=== PATIENT | male | born 1990 | race Caucasian/White ===

== ENCOUNTER 2018-09-04 10:47 | Emergency (ER) | payer OTHER ==
[~2018-09-04] VITALS: Ht 190.5 cm; Wt 91.8 kg
[2018-09-04 10:59] VITALS: BP 126/71
--- NOTE | 2018-09-04 11:05 | NUR ---
PT AMBULATED TO ER BED 4
--- NOTE | 2018-09-04 11:15 | NUR ---
C/O INTERMITTENT L FOREARM PAIN 09/20, DULL/ACHEY X1 DAY. PT REPORTS PLAYING BASEBALL AND GOT HIT WITH A PITCHED BASEBALL JUST ABOVE WRIST. L FOREARM HAS MILD ERYTHEMA & MILD BRUISING/SWELLING PRESENT. NO DEFORMITY. CMS INTACT, DENIES NUMBNESS/TINGLING, ROM INTACT, SKIN IS WARM,DRY AND NFE.
--- NOTE | 2018-09-04 11:57 | NUR ---
DR. DAVIES BEDSIDE EVALUATING PT
[2018-09-04] MEDS ORDERED: KETOROLAC 30 MG/ML VIAL IM ONE (12:10)
[2018-09-04 13:18] VITALS: BP 119/77
== END 2018-09-04 13:18 | disposition home or self-care (01) ==
LOC: MED 10:47
DX: S50.12XA Contusion of left forearm, initial encounter (principal); Z86.711 Personal history of pulmonary embolism; W21.03XA Struck by baseball, initial encounter; Y93.89 Activity, other specified; Y92.89 Other specified places as the place of occurrence of the external cause; Y99.8 Other external cause status
CPT/HCPCS: 29125; 73090; 96372; 99283; J1885; Q0092

== ENCOUNTER 2019-01-15 10:23 | Emergency (ER) | payer BC, OTHER ==
[~2019-01-15] VITALS: Ht 188 cm; Wt 92.8 kg
[2019-01-15 10:37] VITALS: BP 123/68
--- NOTE | 2019-01-15 10:40 | NUR ---
28/M CAME IN TO ER COMPLAINING OF LEFT THUMB PAIN. STATED HE WAS PLAYING BASEBALL. HYPEREXTENDED THUMB WHEN CATCHING BALL. CAP REFILL IS <3SECS, RADIAL PULSE 2+, NO BRUISING NO DEFORMITY NOTED, FULL ROM WITH PAIN 8/10, RADIATES TO FOREARM. AREA AROUND THUMB IS SWOLLEN. PMHX: "CLOTS ON LUNGS" RX: DENIES
--- NOTE | 2019-01-15 10:41 | NUR ---
Patient ambulated to bed 11. RN evaluating patient at bedside.
--- NOTE | 2019-01-15 10:55 | NUR ---
it telecom technician at bedside.
--- NOTE | 2019-01-15 11:34 | NUR ---
APPLIED THUMB SPICA TO LEFT THUMB AND SLING TO LEFT ARM WITHOUT ANY ISSUES
[2019-01-15 11:41] VITALS: BP 123/68
== END 2019-01-15 11:39 | disposition home or self-care (01) ==
LOC: MED 10:23
DX: S63.602A Unspecified sprain of left thumb, initial encounter (principal); F17.210 Nicotine dependence, cigarettes, uncomplicated; Z71.6 Tobacco abuse counseling; W23.0XXA Caught, crushed, jammed, or pinched between moving objects, initial encounter; Y93.64 Activity, baseball; Y92.320 Baseball field as the place of occurrence of the external cause; Y99.8 Other external cause status
CPT/HCPCS: 29125; 73130; 99283; Q0092

== ENCOUNTER 2020-02-01 01:45 | Emergency (ER) | payer BC, OTHER ==
[~2020-02-01] VITALS: Ht 190.5 cm; Wt 95.3 kg
[2020-02-01 01:50] VITALS: BP 128/81
--- NOTE | 2020-02-01 01:57 | NUR ---
PT TAKEN TO BED 3
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
[2020-02-01] MEDS ORDERED: ASPIRIN 325 MG TAB PO ONE ×2 (02:20)
[2020-02-01 02:32] LABS: EOSINOPHILS # (AUTO) 0.2 K/uL (0-0.4); HEMOGLOBIN 13.6 g/dL (12.0-18.0)
--- NOTE | 2020-02-01 02:36 | NUR ---
X-Ray at bedside.
[2020-02-01 02:45] LABS: ANION GAP 15.1 (8-16); CARBON DIOXIDE 26.5 mmol/L (21-32); POTASSIUM 3.6 mmol/L (3.5-5.1); TOTAL BILIRUBIN 0.3 mg/dL (0.0-1.0)
[2020-02-01 03:00] LABS: BASOPHILS % (AUTO) 0.4 % (0.0-2.0); EOSINOPHILS % (AUTO) 2.4 % (0.0-4.0); HEMATOCRIT 39.9 % (36-52); LYMPHOCYTES # (AUTO) 3.7 K/uL (2.0-11.5); LYMPHOCYTES % (AUTO) 41.4 % (20.5-51.1); MEAN CORPUSCULAR HEMOGLOBIN 30 pg (27-31); MEAN CORPUSCULAR HGB CONC 34 g/dL (33-37); MEAN CORPUSCULAR VOLUME 87.5 fL (80-94); MONOCYTES % (AUTO) 11.3 % (1.7-9.3); NEUTROPHILS # (AUTO) 3.9 K/uL (1.8-7.7); NEUTROPHILS % (AUTO) 44.5 % (42.2-75.2); PLATELET COUNT (AUTO) 270 K/uL (140-450); RED BLOOD CELL COUNT(AUTO) 4.56 MIL/uL (4.20-6.10); WHITE BLOOD COUNT (AUTO) 8.8 K/uL (4.8-10.8)
--- NOTE | 2020-02-01 03:18 | NUR ---
PT RESTING QUIETLY IN BED. VSS, R/R EQUAL, AND UNLABORED. HOB RAISED. PT POSITIONED FOR COMFORT. SIDE RAIL X1, BED IN LOW POSITION, WILL CONTINUE TO MONITOR.
--- NOTE | 2020-02-01 06:11 | NUR ---
Patient discharged with v/s stable. Written and verbal after care instructions given and explained. Patient verbalized understanding. Ambulatory with steady gait. All questions addressed prior to discharge. Advised to follow up with PMD.
[2020-02-01 06:24] VITALS: BP 128/81
== END 2020-02-01 06:11 | disposition home or self-care (01) ==
LOC: MED 01:45
DX: R06.02 Shortness of breath (principal); R07.9 Chest pain, unspecified; F15.10 Other stimulant abuse, uncomplicated
CPT/HCPCS: 36415; 71045; 71275; 80053; 84484; 85025; 85379; 93005; 99285; Q9967

== ENCOUNTER 2020-05-18 06:49 | Emergency (ER) | payer OTHER ==
[~2020-05-18] VITALS: Ht 188 cm; Wt 88.0 kg
[2020-05-18 06:53] VITALS: BP 133/79
--- NOTE | 2020-05-18 06:56 | NUR ---
PT TAKEN TO BED 7
--- NOTE | 2020-05-18 07:03 | NUR ---
Dr. Camargo examining patient.
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
--- NOTE | 2020-05-18 07:13 | NUR ---
X-Ray at bedside.
--- NOTE | 2020-05-18 07:13 | NUR ---
LAB AT BEDSIDE
--- NOTE | 2020-05-18 07:14 | NUR ---
REPORTED TO KELBY HEADLEY FOR CONTINUITY OF CARE
[2020-05-18 07:25] LABS: BASOPHILS # (AUTO) 0.1 K/uL (0.00-0.22); BASOPHILS % (AUTO) 0.8 % (0.0-2.0); EOSINOPHILS # (AUTO) 0.1 K/uL (0-0.4); EOSINOPHILS % (AUTO) 0.8 % (0.0-4.0); HEMATOCRIT 40.2 % (36-52); HEMOGLOBIN 13.5 g/dL (12.0-18.0); LYMPHOCYTES # (AUTO) 2.4 K/uL (2.0-11.5); LYMPHOCYTES % (AUTO) 35.8 % (20.5-51.1); MEAN CORPUSCULAR HEMOGLOBIN 30 pg (27-31); MEAN CORPUSCULAR HGB CONC 34 g/dL (33-37); MEAN CORPUSCULAR VOLUME 89.1 fL (80-94); MONOCYTES # (AUTO) 0.6 K/uL (0.8-1.0); MONOCYTES % (AUTO) 9.3 % (1.7-9.3); NEUTROPHILS # (AUTO) 3.6 K/uL (1.8-7.7); NEUTROPHILS % (AUTO) 53.3 % (42.2-75.2); PLATELET COUNT (AUTO) 265 K/uL (140-450); RED BLOOD CELL COUNT(AUTO) 4.51 MIL/uL (4.20-6.10); RED CELL DISTRIBUTION WIDTH 13.7 % (11.6-13.7); WHITE BLOOD COUNT (AUTO) 6.8 K/uL (4.8-10.8)
[2020-05-18] MEDS: ALUMINUM HYD/MAG/SIMETHICONE 30 ML UDC PO ONE (07:26)
[2020-05-18] MEDS: FAMOTIDINE 20 MG TAB PO ONE (07:26)
[2020-05-18 07:39] LABS: ALBUMIN 3.8 g/dL (3.4-5.0); ANION GAP 10.2 (8-16); CARBON DIOXIDE 29.3 mmol/L (21-32); POTASSIUM 3.5 mmol/L (3.5-5.1); TOTAL BILIRUBIN 0.7 mg/dL (0.0-1.0)
[2020-05-18] MEDS ORDERED: FAMO-90 PO (07:48)
--- NOTE | 2020-05-18 07:55 | NUR ---
Patient discharged with v/s stable. Written and verbal after care instructions about GERD given and explained. Patient alert, oriented and verbalized understanding of instructions. Ambulatory with steady gait. All questions addressed prior to discharge. ID band removed. Patient advised to follow up with PMD. Rx of pepcid given. Patient educated on indication of medication including possible reaction and side effects. Opportunity to ask questions provided and answered.
[2020-05-18 07:57] VITALS: BP 133/79
== END 2020-05-18 07:55 | disposition home or self-care (01) ==
LOC: MED 06:49
DX: R07.89 Other chest pain (principal); Z79.899 Other long term (current) drug therapy
CPT/HCPCS: 36415; 71045; 80053; 83880; 84484; 85025; 85379; 99285

== ENCOUNTER 2020-05-21 05:50 | Emergency (ER) | payer OTHER ==
[~2020-05-21] VITALS: Ht 193 cm; Wt 87.1 kg
[~2020-05-21 05:50] MED LIST: FAMO-90 PO
[2020-05-21 05:58] VITALS: BP 118/71
[2020-05-21] MEDS ORDERED: LORazepam 1 MG TAB PO ONE (06:15)
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
[2020-05-21 06:39] VITALS: BP 118/71
== END 2020-05-21 06:41 | disposition home or self-care (01) ==
LOC: MED 05:50
DX: F41.9 Anxiety disorder, unspecified (principal)
CPT/HCPCS: 93005; 99283

== ENCOUNTER 2020-08-16 12:44 | Emergency (ER) | payer OTHER ==
[~2020-08-16] VITALS: Ht 190.5 cm; Wt 86.2 kg
--- NOTE | 2020-08-16 12:48 | NUR ---
Patient ambulated to bed 7. RN evaluating the patient at bedside.
[2020-08-16 12:50] VITALS: BP 129/61
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
--- NOTE | 2020-08-16 13:06 | NUR ---
DR. CHING AT BEDSIDE EVALUATING PT.
[2020-08-16 13:18] VITALS: BP 129/61
[2020-08-16] MEDS ORDERED: ONDA8TAB87 PO ×2 (15:35→15:38)
== END 2020-08-16 13:15 | disposition home or self-care (01) ==
LOC: MED 12:44
DX: R00.2 Palpitations (principal); Z79.899 Other long term (current) drug therapy
CPT/HCPCS: 93005; 99283

== ENCOUNTER 2020-08-20 00:49 | Emergency (ER) | payer OTHER ==
[~2020-08-20] VITALS: Ht 190.5 cm; Wt 92.5 kg
[~2020-08-20 00:49] MED LIST changes: +ONDA8TAB87 PO
[2020-08-20 00:51] VITALS: BP 134/78
--- NOTE | 2020-08-20 00:52 | NUR ---
29 Y/O MALE PRESENTED TO ED C/O SOB , PT STATES HE WOKE UP AND FELT LIKE HE COULDN'T CATCH HIS BREATH. PT STATES HE ALSO HAS SOME CHEST PAIN X 2 DAYS , DESCRIBES PAIN BURNING SENSATION W/ NO RADIATION. RR EVEN AND UNLABORED. LUNG SOUND BL CLEAR THROUGHOUT. CAP REFIL < 3 SEC. PT RESTING IN BED, LOCKED AND IN LOWEST POSITION, HOB ELEVATED, SIDE RAIL X1 . VSS. PT CONNECTED TO PULSE OX , OXYGEN LEVEL 97% RA. PMH: ANXIETY , BLOOD CLOTS NKA
--- NOTE | 2020-08-20 00:59 | NUR ---
Patient ambulated to ER [facility] w/ steady gait. VSS. No acute distress noted.
--- NOTE | 2020-08-20 01:21 | NUR ---
PT TAKEN TO BED 3
--- NOTE | 2020-08-20 01:24 | NUR ---
Dr. Castellanos examining patient.
--- NOTE | 2020-08-20 01:42 | NUR ---
EKG DONE AT BEDSIDE. STRIP READS 69 BPM/ SINUS RHYTHM. MD MADE AWARE, WILL CONTINUE TO MONITOR.
[2020-08-20] MEDS ORDERED: ASPIRIN 325 MG TAB PO ONE (01:45)
[2020-08-20 02:01] LABS: BASOPHILS # (AUTO) 0.1 K/uL (0.00-0.22); BASOPHILS % (AUTO) 0.7 % (0.0-2.0); EOSINOPHILS # (AUTO) 0.2 K/uL (0-0.4); EOSINOPHILS % (AUTO) 2.6 % (0.0-4.0); HEMATOCRIT 39.9 % (36-52); HEMOGLOBIN 13.7 g/dL (12.0-18.0); LYMPHOCYTES # (AUTO) 2.3 K/uL (2.0-11.5); LYMPHOCYTES % (AUTO) 31.6 % (20.5-51.1); MEAN CORPUSCULAR HEMOGLOBIN 31 pg (27-31); MEAN CORPUSCULAR HGB CONC 34 g/dL (33-37); MEAN CORPUSCULAR VOLUME 90.5 fL (80-94); MONOCYTES # (AUTO) 0.6 K/uL (0.8-1.0); MONOCYTES % (AUTO) 8.5 % (1.7-9.3); NEUTROPHILS % (AUTO) 56.6 % (42.2-75.2); PLATELET COUNT (AUTO) 261 K/uL (140-450); RED BLOOD CELL COUNT(AUTO) 4.41 MIL/uL (4.20-6.10); RED CELL DISTRIBUTION WIDTH 13.5 % (11.6-13.7); WHITE BLOOD COUNT (AUTO) 7.1 K/uL (4.8-10.8)
--- NOTE | 2020-08-20 02:09 | NUR ---
PATIENT AMBULATED TO THE BATHROOM FOR URINE COLLECTION
--- NOTE | 2020-08-20 02:11 | NUR ---
LES COLLECTED AND GIVEN TO [facility]
[2020-08-20 02:20] LABS: ANION GAP 17.4 (8-16); POTASSIUM 4.4 mmol/L (3.5-5.1)
[2020-08-20 02:25] LABS: ALBUMIN 3.8 g/dL (3.4-5.0); TOTAL BILIRUBIN 0.4 mg/dL (0.0-1.0)
--- NOTE | 2020-08-20 02:47 | NUR ---
PT TO CT VIA W/C
--- NOTE | 2020-08-20 03:44 | NUR ---
EKG PERFORMED AT BEDSIDE. EKG READS SINUS RHYTHM @ 69
[2020-08-20 04:05] VITALS: BP 109/60
--- NOTE | 2020-08-20 04:05 | NUR ---
Patient discharged with v/s stable. Written and verbal after care instructions given and explained. Patient verbalized understanding. Ambulatory with steady gait. ID band removed. All questions addressed prior to discharge. Advised to follow up with PMD.
== END 2020-08-20 04:05 | disposition home or self-care (01) ==
LOC: MED 00:49
DX: R07.89 Other chest pain (principal); Z20.822 Contact with and (suspected) exposure to COVID-19; F41.9 Anxiety disorder, unspecified; Z79.899 Other long term (current) drug therapy
CPT/HCPCS: 36415; 71045; 71250; 80053; 84484; 85025; 86060; 86140; 93005; 99285

== ENCOUNTER 2021-05-22 13:42 | Emergency (ER) | payer OTHER ==
[~2021-05-22] VITALS: Ht 190.5 cm; Wt 90.3 kg
[2021-05-22 13:43] VITALS: BP 136/80
--- NOTE | 2021-05-22 13:46 | NUR ---
Patient ambultaed to bed 11 with steady/even gait.
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
[2021-05-22] MEDS ORDERED: KETOROLAC 30 MG/ML VIAL IM ONE (14:15)
--- NOTE | 2021-05-22 14:46 | NUR ---
RAD AT BEDSIDE
[2021-05-22] MEDS ORDERED: ACET-8386 PO (15:05)
--- NOTE | 2021-05-22 15:18 | NUR ---
Patient discharged with v/s stable. Written and verbal after care instructions given and explained. Patient alert, oriented and verbalized understanding of instructions. Ambulatory with steady gait. All questions addressed prior to discharge. ID band removed. Patient advised to follow up with PMD. Rx of NORCO 5/325 given. Patient educated on indication of medication including possible reaction and side effects. Opportunity to ask questions provided and answered.
== END 2021-05-22 15:17 | disposition home or self-care (01) ==
LOC: MED 13:42
DX: R07.81 Pleurodynia (principal); M79.10 Myalgia, unspecified site; V98.8XXA Other specified transport accidents, initial encounter; Y93.89 Activity, other specified; Y92.89 Other specified places as the place of occurrence of the external cause; Y99.8 Other external cause status
CPT/HCPCS: 71045; 96372; 99283; J1885; Q0092

== ENCOUNTER 2021-05-24 12:13 | Emergency (ER) | payer OTHER ==
[~2021-05-24] VITALS: Ht 190.5 cm; Wt 92.5 kg
[~2021-05-24 12:13] MED LIST changes: +ACET-8386 PO
[2021-05-24 12:18] VITALS: BP 136/79
--- NOTE | 2021-05-24 12:23 | NUR ---
Patient ambulated to bed 02 with steady/even gait.
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
--- NOTE | 2021-05-24 12:34 | NUR ---
Dr. Harding is evaluating pt at bedside
[2021-05-24 13:07] LABS: EOSINOPHILS # (AUTO) 0.1 K/uL (0-0.4); EOSINOPHILS % (AUTO) 1.7 % (0.0-4.0); HEMATOCRIT 40.2 % (36-52); HEMOGLOBIN 13.5 g/dL (12.0-18.0); LYMPHOCYTES # (AUTO) 1.2 K/uL (2.0-11.5); LYMPHOCYTES % (AUTO) 29.3 % (20.5-51.1); MEAN CORPUSCULAR HEMOGLOBIN 31 pg (27-31); MEAN CORPUSCULAR HGB CONC 34 g/dL (33-37); MEAN CORPUSCULAR VOLUME 90.9 fL (80-94); MONOCYTES # (AUTO) 0.3 K/uL (0.8-1.0); MONOCYTES % (AUTO) 7.6 % (1.7-9.3); NEUTROPHILS # (AUTO) 2.6 K/uL (1.8-7.7); NEUTROPHILS % (AUTO) 60.4 % (42.2-75.2); PLATELET COUNT (AUTO) 238 K/uL (140-450); RED BLOOD CELL COUNT(AUTO) 4.42 MIL/uL (4.20-6.10); RED CELL DISTRIBUTION WIDTH 13.5 % (11.6-13.7); WHITE BLOOD COUNT (AUTO) 4.3 K/uL (4.8-10.8)
[2021-05-24 13:27] LABS: ALBUMIN 3.6 g/dL (3.4-5.0); ANION GAP 8.6 (8-16); CARBON DIOXIDE 29.6 mmol/L (21-32); POTASSIUM 4.2 mmol/L (3.5-5.1); TOTAL BILIRUBIN 0.4 mg/dL (0.0-1.0)
[2021-05-24 14:10] VITALS: BP 109/69
--- NOTE | 2021-05-24 14:10 | NUR ---
Dr. Harding is reevaluating pt at bedside
--- NOTE | 2021-05-24 14:15 | NUR ---
Patient discharged with v/s stable. Written and verbal after care instructions given and explained for Nonspecific Chest Pain. Patient verbalized understanding. Ambulatory with steady gait. All questions addressed prior to discharge. Advised to follow up with PMD. Work note provided.
== END 2021-05-24 14:15 | disposition home or self-care (01) ==
LOC: MED 12:13
DX: R07.9 Chest pain, unspecified (principal); R42 Dizziness and giddiness; F41.9 Anxiety disorder, unspecified; F32.9 Major depressive disorder, single episode, unspecified; Z79.899 Other long term (current) drug therapy
CPT/HCPCS: 36415; 71045; 80053; 83690; 84484; 85025; 85379; 93005; 99285

== ENCOUNTER 2021-06-05 20:40 | Emergency (ER) | payer OTHER ==
[~2021-06-05] VITALS: Ht 190.5 cm; Wt 90.7 kg
[2021-06-05 20:50] VITALS: BP 140/80
--- NOTE | 2021-06-05 20:50 | NUR ---
TO BED AMBULATORY
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
--- NOTE | 2021-06-05 21:07 | NUR ---
Dr. Zhu examining patient.
[2021-06-05] MEDS ORDERED: MORPHINE SULFATE 4 MG/ML SYR IM ONE (21:10)
[2021-06-05] MEDS ORDERED: BACTO TP (22:28)
[2021-06-05] MEDS ORDERED: ACET-8386 PO (22:28)
[2021-06-05] MEDS ORDERED: IBUP-2213 PO (22:28)
[2021-06-05 23:00] VITALS: BP 140/80
== END 2021-06-05 23:00 | disposition home or self-care (01) ==
LOC: MED 20:40
DX: S02.2XXA Fracture of nasal bones, initial encounter for closed fracture (principal); S05.42XA Penetrating wound of orbit with or without foreign body, left eye, initial encounter; S01.511A Laceration without foreign body of lip, initial encounter; Z79.899 Other long term (current) drug therapy; Y04.2XXA Assault by strike against or bumped into by another person, initial encounter; Y93.89 Activity, other specified; Y92.89 Other specified places as the place of occurrence of the external cause; Y99.8 Other external cause status
CPT/HCPCS: 12013; 70450; 70486; 72125; 90471; 90715; 96374; 99285; J2270

== ENCOUNTER 2021-08-13 05:15 | Emergency (ER) | payer OTHER ==
[~2021-08-13] VITALS: Ht 190.5 cm; Wt 92.5 kg
[~2021-08-13 05:15] MED LIST changes: +BACTO TP; +IBUP-2213 PO
[2021-08-13 05:33] VITALS: BP 126/66
--- NOTE | 2021-08-13 05:42 | NUR ---
30 Y/O MALE BIBS FROM HOME, C/O PRODUCTIVE COUGH X6 DAYS. DRY STUFFY NOSE. -N/V/D OR FEVER. +SORE THROAT. A/OX4, GCS-15; UNLABORED BREATHING AND SPEAKING IN FULL SENTENCES; AMBULATORY W/O ASSISTANCE. HX: BLOOD CLOT, INSOMNIA, ANX NKA LORAZEPAM, HYDOXYZINE, BUSPORINE
--- NOTE | 2021-08-13 06:06 | NUR ---
PT TAKEN TO XRAY FROM [facility]
--- NOTE | 2021-08-13 06:09 | NUR ---
PT RETURN FROM XRAY
[2021-08-13] MEDS ORDERED: PRED20TA5 PO (07:23)
--- NOTE | 2021-08-13 07:36 | NUR ---
FLU & COVID LES SWAB PAMELA.
--- NOTE | 2021-08-13 07:36 | NUR ---
Raquel jones in [facility] - 08/13/21 at 0736 by [email or web address] FLUKayla& DYLON SANTIAGO.
--- NOTE | 2021-08-13 07:45 | NUR ---
SWAB ORDERS CANCELLED PER DR CHING
--- NOTE | 2021-08-13 07:51 | NUR ---
Patient discharged with v/s stable. Written and verbal after care instructions ABOUT COUGH given and explained. Patient alert, oriented and verbalized understanding of instructions. Ambulatory with steady gait. All questions addressed prior to discharge. ID band removed. Patient advised to follow up with PMD. Rx of PREDNISONE given. Patient educated on indication of medication including possible reaction and side effects. Opportunity to ask questions provided and answered.
== END 2021-08-13 07:51 | disposition home or self-care (01) ==
LOC: MED 05:15
DX: R05.9 Cough, unspecified (principal); Z79.899 Other long term (current) drug therapy
CPT/HCPCS: 71045; 99283

== ENCOUNTER 2021-09-04 07:14 | Emergency (ER) | payer OTHER ==
[~2021-09-04] VITALS: Ht 190.5 cm; Wt 91.6 kg
[~2021-09-04 07:14] MED LIST changes: +PRED20TA5 PO
[2021-09-04 07:24] VITALS: BP 126/74
--- NOTE | 2021-09-04 07:35 | NUR ---
Raquel jones in [facility] - 09/04/21 at [email or web address] GUALLPA AT [facility] EVALUATING
--- NOTE | 2021-09-04 07:52 | NUR ---
DR GUALLPA AT BEDSIDE EVALUATING PT
[2021-09-04] MEDS ORDERED: DICYCLOMINE HCL LIQUID 20 MG, ALUMINUM HYD/MAG/SIMETHICONE 30 ML, LIDOCAINE VISCOUS 2% ... PO ONE ×3 (07:55)
[2021-09-04] MEDS ORDERED: hydrOXYzine PAMOATE 25 MG CAP PO STA (07:55)
--- NOTE | 2021-09-04 08:15 | NUR ---
30YO MALE PT C/O ANXIETY XLASTNIGHT WHICH CAUSE 6/10 CHEST PALPITATIONS. PT STATES TAKING LORAZEPAM LAST NIGHT, HAD NO RELIEF. PT ALSO STATES HAVING CHILLS XLAST NIGHT. PT REPORTS MILD "HEART PAIN" AND WAS DX WITH R BRUNDLE BRANCH BLOCK ON TUESDAY, HAS PENDING FOLLOW UP APPT. PT NOT IN VISIBLE DISTRESS. RESPIRATIONS EVEN AND UNLABORED. TALKING IN COMPLETE SENTENCES. PT AAOX4, ON MONITOR, HOB POSITIONED PER PT COMFORT. NKA HX: BRUNDLE BRANCH BLOCK
[2021-09-04] MEDS ORDERED: ALUMINUM HYD/MAG/SIMETHICONE 30 ML UDC ONE (08:25)
[2021-09-04] MEDS ORDERED: DICYCLOMINE HCL LIQUID 10 MG/5 ML UDC ONE (08:25)
[2021-09-04 08:33] LABS: BASOPHILS % (AUTO) 0.5 % (0.0-2.0); EOSINOPHILS # (AUTO) 0.2 K/uL (0-0.4); EOSINOPHILS % (AUTO) 2.6 % (0.0-4.0); HEMATOCRIT 39.9 % (36-52); HEMOGLOBIN 13.4 g/dL (12.0-18.0); LYMPHOCYTES # (AUTO) 1.6 K/uL (2.0-11.5); LYMPHOCYTES % (AUTO) 24.9 % (20.5-51.1); MEAN CORPUSCULAR HEMOGLOBIN 30 pg (27-31); MEAN CORPUSCULAR HGB CONC 34 g/dL (33-37); MEAN CORPUSCULAR VOLUME 90.1 fL (80-94); MONOCYTES # (AUTO) 0.6 K/uL (0.8-1.0); NEUTROPHILS # (AUTO) 4.2 K/uL (1.8-7.7); PLATELET COUNT (AUTO) 229 K/uL (140-450); RED BLOOD CELL COUNT(AUTO) 4.43 MIL/uL (4.20-6.10); RED CELL DISTRIBUTION WIDTH 13.4 % (11.6-13.7); WHITE BLOOD COUNT (AUTO) 6.6 K/uL (4.8-10.8)
[2021-09-04 08:51] LABS: ALBUMIN 3.6 g/dL (3.4-5.0); CARBON DIOXIDE 32.8 mmol/L (21-32); POTASSIUM 3.8 mmol/L (3.5-5.1); TOTAL BILIRUBIN 0.5 mg/dL (0.0-1.0)
[2021-09-04] MEDS ORDERED: MAG355OR2 PO (09:21)
[2021-09-04 09:37] VITALS: BP 112/69
--- NOTE | 2021-09-04 09:37 | NUR ---
Patient discharged with v/s stable. Written and verbal after care instructions FOR GASTRITIS given and explained. Patient alert, oriented and verbalized understanding of instructions. Ambulatory with steady gait. All questions addressed prior to discharge. ID band removed. Patient advised to follow up with PMD. Rx of MAALOX MAXIMUM STRENGTH SUSP given. Opportunity to ask questions provided and answered.
--- NOTE | 2021-09-04 09:38 | NUR ---
The patient's care was reviewed and supervised by Kamryn Ch RN.
[2021-09-04] MEDS ORDERED: DOPPLER MC ONE ×2 (10:15→10:18)
== END 2021-09-04 09:37 | disposition home or self-care (01) ==
LOC: MED 07:14
DX: F41.9 Anxiety disorder, unspecified (principal); K29.70 Gastritis, unspecified, without bleeding; R00.2 Palpitations
CPT/HCPCS: 36415; 80053; 83690; 85025; 93005; 99284; Q0177

== ENCOUNTER 2022-02-26 22:47 | Emergency (ER) | payer OTHER ==
[~2022-02-26] VITALS: Ht 190.5 cm; Wt 98.9 kg
[~2022-02-26 22:47] MED LIST changes: -ACET-8386 PO; +ACET-8905 PO; +MAG355OR2 PO
[2022-02-26 22:52] VITALS: BP 137/69
--- NOTE | 2022-02-26 22:58 | NUR ---
PT TAKEN TO BED 9
--- NOTE | 2022-02-26 23:13 | NUR ---
Pt placed on bedside monitor. VSS
[2022-02-26] MEDS ORDERED: BENZ200C4 PO (23:52)
[2022-02-26] MEDS ORDERED: FAMO-90 PO (23:52)
[2022-02-26] MEDS ORDERED: ACET-10509 PO (23:52)
[2022-02-27 00:09] VITALS: BP 137/69
--- NOTE | 2022-02-27 00:09 | NUR ---
Written and verbal after care instructions given and explained. Patient alert, oriented and verbalized understanding of instructions. Ambulatory with steady gait. All questions addressed prior to discharge. ID band removed. Patient advised to follow up with PMD. Rx of ACETAMINOPHEN, BENZONATATE AND PEPCID given. Patient educated on indication of medication including possible reaction and side effects. Opportunity to ask questions provided and answered.
== END 2022-02-27 00:09 | disposition home or self-care (01) ==
LOC: MED 22:47
DX: R20.2 Paresthesia of skin (principal); J06.9 Acute upper respiratory infection, unspecified; F41.9 Anxiety disorder, unspecified; Z79.899 Other long term (current) drug therapy
CPT/HCPCS: 93005; 99283

== ENCOUNTER 2022-07-29 17:54 | Emergency (ER) | payer OTHER ==
[~2022-07-29] VITALS: Ht 190.5 cm; Wt 98.5 kg
[~2022-07-29 17:54] MED LIST changes: +ACET-10509 PO; +BENZ200C4 PO
[2022-07-29 18:20] VITALS: BP 130/81
--- NOTE | 2022-07-29 19:54 | NUR ---
PATIENT DC'D. INSTRUCTIONS PROVIDED AND PATIENT VERBALIZED UNDERSTANDING
== END 2022-07-29 19:54 | disposition home or self-care (01) ==
LOC: MED 17:54
DX: S61.411A Laceration without foreign body of right hand, initial encounter (principal); R03.0 Elevated blood-pressure reading, without diagnosis of hypertension; Z79.899 Other long term (current) drug therapy; W22.8XXA Striking against or struck by other objects, initial encounter; Y93.89 Activity, other specified; Y92.89 Other specified places as the place of occurrence of the external cause; Y99.8 Other external cause status
CPT/HCPCS: 73130; 99283

== ENCOUNTER 2022-08-08 09:27 | Emergency (ER) | payer OTHER ==
[~2022-08-08] VITALS: Ht 190.5 cm; Wt 98.0 kg
[2022-08-08 09:28] VITALS: BP 142/84
--- NOTE | 2022-08-08 10:13 | NUR ---
Patient being evaluated by physician at bedside.
[2022-08-08] MEDS ORDERED: ONDA8TAB87 PO (10:31)
[2022-08-08] MEDS ORDERED: ATA25 PO (10:31)
[2022-08-08 10:41] VITALS: BP 142/84
--- NOTE | 2022-08-08 10:41 | NUR ---
Patient discharged with v/s stable. Written and verbal after care instructions given and explained. Patient alert, oriented and verbalized understanding of instructions. Ambulatory with steady gait. All questions addressed prior to discharge. ID band removed. Patient advised to follow up with PMD. Rx of ATARAX, ZOFRAN (SENT) given. Patient educated on indication of medication including possible reaction and side effects. Opportunity to ask questions provided and answered.
== END 2022-08-08 10:41 | disposition home or self-care (01) ==
LOC: MED 09:27
DX: R42 Dizziness and giddiness (principal); R11.0 Nausea; R07.9 Chest pain, unspecified; F41.9 Anxiety disorder, unspecified; Z79.899 Other long term (current) drug therapy
CPT/HCPCS: 99283